=== PATIENT | female | born 1985 | race Caucasian/White ===

== ENCOUNTER 2017-10-10 17:00 | Outpatient (RCR) | payer BC | END 2017-10-22 | LOC: PT 17:00 | PROVIDERS: ATTEND Neurological Surgery | DX: M51.17 Intervertebral disc disorders with radiculopathy, lumbosacral region (principal); M54.5 Low back pain; M79.652 Pain in left thigh; M79.651 Pain in right thigh; M62.81 Muscle weakness (generalized) ==

== ENCOUNTER 2017-11-07 17:00 | Outpatient (RCR) | payer BC | END 2017-11-22 | LOC: PT 17:00 | PROVIDERS: ATTEND Neurological Surgery | DX: M51.17 Intervertebral disc disorders with radiculopathy, lumbosacral region (principal); M54.5 Low back pain; M79.652 Pain in left thigh; M79.651 Pain in right thigh; M62.81 Muscle weakness (generalized) ==